=== PATIENT | female | born 1945 | race Caucasian/White ===

== ENCOUNTER → 2021-02-22 | Outpatient (CLI) | payer MEDICARE, OTHER | LOC: KOH-I 13:55 | DX: M25.561 Pain in right knee (principal); M17.11 Unilateral primary osteoarthritis, right knee | CPT/HCPCS: 73562 ==

== ENCOUNTER 2021-04-11 16:44 | Observation (INO) | payer MEDICARE, OTHER ==
[~2021-04-11] VITALS: Ht 157.5 cm; Wt 88.5 kg
[2021-04-11 18:50] LABS: HEMOGLOBIN 15.3 gm/dl (12.3-15.3); RED BLOOD COUNT 4.79 M/UL (4.00-5.10); WHITE BLOOD COUNT 8.1 K/UL (4.5-11.0)
[2021-04-11 19:10] LABS: BUN/CREATININE RATIO 31 (0-10)
[2021-04-12] MEDS ORDERED: SIMVASTATIN20 MG PO (08:06)
[2021-04-12] MEDS ORDERED: FLUOXETINE HCL40 MG PO (08:06)
[2021-04-12] MEDS ORDERED: ZENPEP DR 10,01 EACH PO (08:08)
[2021-04-12] MEDS ORDERED: AMLODIPINE BESYL5 MG PO (08:08)
[2021-04-12] MEDS ORDERED: LISINOPRIL20 MG PO (08:09)
[2021-04-12] MEDS ORDERED: HYDROCHLOROTHIA25 MG PO (08:09)
[2021-04-12] MEDS ORDERED: LEVOTHYROXINE150 MCG PO (08:09)
[2021-04-12] MEDS ORDERED: METOPROLOL SUCC25 MG PO (08:10)
[2021-04-12] MEDS ORDERED: CELECOXIB200 MG PO (08:10)
[2021-04-12] MEDS ORDERED: FUROSEMIDE20 MG PO (08:10)
[2021-04-12] MEDS ORDERED: STIOLTO RESPIMAT4 GM INH (08:12)
[2021-04-12] MEDS ORDERED: FISH OIL 1,0001 EACH PO (12:55)
[2021-04-12] MEDS ORDERED: MAGNESIUM250 M1 PO (12:55)
[2021-04-12] MEDS ORDERED: ASPIRIN EC81 MG PO (12:56)
[2021-04-12] MEDS ORDERED: MULTIVITAMIN1 EACH PO (13:04)
[2021-04-12] MEDS ORDERED: VITAMIN D 40400 UNIT PO (13:04)
[2021-04-12] MEDS ORDERED: SULFAMETHOXAZO1 EACH PO (17:27)
== END 2021-04-12 18:03 | disposition home or self-care (01) ==
LOC: ER1 16:44 → 3 EAST 04-12 03:23 → CDU 04-12 03:23 → 3 EAST 04-12 13:10
PROVIDERS: Physician Assistant; ADMIT Family Medicine
DX: R42 Dizziness and giddiness (principal); N39.0 Urinary tract infection, site not specified; I10 Essential (primary) hypertension; E78.5 Hyperlipidemia, unspecified; K21.9 Gastro-esophageal reflux disease without esophagitis; G47.33 Obstructive sleep apnea (adult) (pediatric); M19.90 Unspecified osteoarthritis, unspecified site; E03.9 Hypothyroidism, unspecified; J44.9 Chronic obstructive pulmonary disease, unspecified; Z20.822 Contact with and (suspected) exposure to COVID-19; Z79.899 Other long term (current) drug therapy; Z88.1 Allergy status to other antibiotic agents
CPT/HCPCS: ECHO; 70450; 70496; 70498; 70551; 80053; 81001; 82550; 82553; 83874; 84484; 85025; 93005; 93306; 97162; 99285; G0378; J2405; Q9967; U0002